=== PATIENT | male | born 1990 | race Caucasian/White ===

== ENCOUNTER 2019-07-18 20:45 | Emergency (ER) | payer OTHER ==
[~2019-07-18] VITALS: Ht 175.3 cm; Wt 81.8 kg
[2019-07-18] MEDS ORDERED: cefTRIAXone SOD 1 GM in D5W MINI-BAG PLUS 50 ML IV ONE (21:15)
[2019-07-18] MEDS ORDERED: LIDOCAINE 2% MDV 20 ML VIAL SC ONE (21:15)
[2019-07-18] MEDS: NS 1,000 ML IV SCH ×2 (21:15→23:36)
[2019-07-18] MEDS ORDERED: VANCOMYCIN HCL 1,000 MG in D5W 250 ML IV ONE (21:30)
[2019-07-18] MEDS ORDERED: PIPERACILLIN/TAZOBACTAM SOD 3.375 GM in D5W MINI-BAG PLUS 50 ML IV ONE (21:30)
[2019-07-18 21:34] LABS: HEMATOCRIT 47.7 % (42.0-52.0); HEMOGLOBIN 15.9 g/dl (13.5-17.5); MEAN CORPUSCULAR HEMOGLOBIN 29.6 pg (27.0-33.0); MEAN CORPUSCULAR HGB CONC 33.3 g/dl (32.0-36.5); MEAN CORPUSCULAR VOLUME 88.8 fl (80.0-96.0); PLATELET COUNT, AUTOMATED 218 10^3/uL (150-450); RED BLOOD COUNT 5.37 10^6/uL (4.30-6.10); WHITE BLOOD COUNT 8.4 10^3/uL (4.0-10.0)
[2019-07-18 22:02] LABS: BLOOD UREA NITROGEN 16 MG/DL (7-18); CALCIUM LEVEL 8.3 MG/DL (8.5-10.1); CARBON DIOXIDE LEVEL 24 MEQ/L (21-32); CHLORIDE LEVEL 108 MEQ/L (98-107); CREATININE FOR GFR 1.14 MG/DL (0.70-1.30); GLOMERULAR FILTRATION RATE > 60.0 (>60); GLUCOSE, FASTING 98 MG/DL (70-100); POTASSIUM SERUM 3.8 MEQ/L (3.5-5.1); SODIUM LEVEL 141 MEQ/L (136-145)
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
[2019-07-18] MEDS ORDERED: IBUP-1022 PO (23:00)
[2019-07-18] MEDS ORDERED: KEFL500C17 PO (23:00)
[2019-07-18] MEDS ORDERED: NORCO 5/325MG TABLET (BULK FOR ED) PO ONE (23:30)
[2019-07-18] MEDS: ceFAZolin SOD 2 GM in IV 1 EA IV ONE (23:35)
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
[2019-07-19] MEDS: ceFAZolin SOD 2 GM in IV 1 EA IV ONE (00:48)
[2019-07-19 02:55] VITALS: BP 122/58
--- NOTE | 2019-07-19 10:51 | REP ---
Right hand series: Four views. History: Wound. Findings: Four views right hand show normal bones, joints, and soft tissues. No fracture or subluxation is seen. There is evidence of soft tissue swelling about the PIP joint of the long finger. Impression: No fracture seen. Electronically Signed by Tho Hubbard MD 07/19/2019 08:08 A
--- NOTE | 2019-07-19 11:07 | REP ---
RIGHT KNEE SERIES: FIVE VIEWS. HISTORY: Wound. FINDINGS: Five views of the right knee demonstrate soft tissue swelling and irregularity along the lateral aspect at the level of the knee joint. Lateral view demonstrates evidence of soft tissue laceration in the popliteal region posteriorly. There is no evidence of fracture or opaque foreign body. No intra-articular gas is seen. IMPRESSION: Soft-tissue swelling and irregularity consistent with laceration. No visible fracture or opaque foreign body seen. Electronically Signed by Tho Hubbard MD 07/19/2019 11:24 A
== END 2019-07-19 02:58 | disposition home or self-care (01) ==
LOC: M ED 20:45
DX: S66.124A Laceration of flexor muscle, fascia and tendon of right ring finger at wrist and hand level, initial encounter (principal); S61.212A Laceration without foreign body of right middle finger without damage to nail, initial encounter; S61.210A Laceration without foreign body of right index finger without damage to nail, initial encounter; S81.011A Laceration without foreign body, right knee, initial encounter; W26.0XXA Contact with knife, initial encounter; Y92.139 Unspecified place military base as the place of occurrence of the external cause; Y93.89 Activity, other specified; Y99.1 Military activity; Z87.891 Personal history of nicotine dependence
CPT/HCPCS: 12002; 73130; 73564; 73700; 80048; 85027; 96361; 96365; 96367; 99284; J0690; J0696; J2543; J3370

== ENCOUNTER 2020-03-16 17:17 | Emergency (ER) | payer OTHER ==
[~2020-03-16] VITALS: Ht 175.3 cm; Wt 81.9 kg
[~2020-03-16 17:17] MED LIST: IBUP-1022 PO; KEFL500C17 PO
[2020-03-16] MEDS ORDERED: LIDOCAINE 5% (LIDODERM) PATCH TD ONE (18:30)
[2020-03-16] MEDS ORDERED: CYCLOBENZAPRINE 5MG TABLET PO ONE (18:30)
[2020-03-16 18:57] LABS: BASO % 0.5 % (0.0-1.0); EOS # 0.6 10^3/uL (0.0-0.5); EOS % 6.6 % (0.0-3.0); HEMOGLOBIN 15.4 g/dl (13.5-17.5); LYMPH % 23.4 % (24.0-44.0); MEAN CORPUSCULAR HGB CONC 34.2 g/dl (32.0-36.5); MEAN CORPUSCULAR VOLUME 87.5 fl (80.0-96.0); MONO # 0.8 10^3/uL (0.0-0.8); MONO % 9.7 % (0.0-5.0); NEUTROPHILS # 5.1 10^3/uL (1.5-8.5); NEUTROPHILS % 59.5 % (36.0-66.0); PLATELET COUNT, AUTOMATED 204 10^3/uL (150-450); RED BLOOD COUNT 5.14 10^6/uL (4.30-6.10); WHITE BLOOD COUNT 8.6 10^3/uL (4.0-10.0)
--- NOTE | 2020-03-16 19:14 | REPVR ---
PROCEDURE INFORMATION: Exam: XR Chest, 2 Views Exam date and time: 03/16/2020 6:54 PM Age: 29 years old Clinical indication: Shortness of breath; Additional info: L upper back pain radiating around to front TECHNIQUE: Imaging protocol: XR of the chest Views: 2 views. COMPARISON: No relevant prior studies available. FINDINGS: Lungs: Degree of inflation of the lungs is normal. No evidence of pulmonary edema. No focal airspace process. No concerning parenchymal lung mass. Pleural space: No pleural effusion or pneumothorax. Heart/Mediastinum: Cardiac silhouette appears normal. No mediastinal adenopathy or hilar mass. Bones/joints: Osseous structures show no acute or concerning abnormality. IMPRESSION: No active or focal cardiopulmonary process. Electronically signed by: Leon Ferrell On 03/16/2020 19:14:08 PM
[2020-03-16 19:24] LABS: BLOOD UREA NITROGEN 21 MG/DL (7-18); CALCIUM LEVEL 8.9 MG/DL (8.5-10.1); CARBON DIOXIDE LEVEL 26 MEQ/L (21-32); CHLORIDE LEVEL 106 MEQ/L (98-107); CK-MB VALUE MASS 2.7 NG/ML (<3.6); CPK CREATINE PHOSPHOKINASE 434 U/L (39-308); CREATININE FOR GFR 1.13 MG/DL (0.70-1.30); GLOMERULAR FILTRATION RATE > 60.0 (>60); GLUCOSE, FASTING 88 MG/DL (70-100); MB/CK RELATIVE INDEX 0.62 (< OR =4); SODIUM LEVEL 137 MEQ/L (136-145); TROPONIN I < 0.02 NG/ML (< 0.10)
[2020-03-16] MEDS ORDERED: LIDO5DIS41 TOP (20:06)
[2020-03-16] MEDS ORDERED: CYCL5TAB PO (20:06)
[2020-03-16 20:11] VITALS: BP 136/87
[2020-03-16] MEDS ORDERED: **NOTE PATIENT COMMENT** MISC XX SCH (21:00)
== END 2020-03-16 20:14 | disposition home or self-care (01) ==
LOC: M ED 17:17
DX: S29.012A Strain of muscle and tendon of back wall of thorax, initial encounter (principal); X50.0XXA Overexertion from strenuous movement or load, initial encounter; Y92.9 Unspecified place or not applicable; Y93.B3 Activity, free weights; Y99.9 Unspecified external cause status; Z79.899 Other long term (current) drug therapy; Z88.2 Allergy status to sulfonamides